=== PATIENT | female | born 1935 | race Caucasian/White ===

== ENCOUNTER 2018-01-26 11:12 | Emergency (ER) | payer MEDICARE, BC ==
--- OUTSIDE RECORDS SUMMARY | 2018-01-26 12:45 | XMS REPORT | Continuity of Care Document ---
:1935 External Reference #:[id number] Author Name Rashawn Burden MD Address [address] [place] [address] Care Team Providers Name Role Phone Jeniffer Fisher M.D. Care Team Information Database Security Administrator Unavailable Maya Fisher M.D. Primary Care Physician Unavailable Payers Type Date Identification Numbers Payment Provider Subscriber Policy Number: [id number] Medicare Stacy Chen PayID: [id number] [address] [place] [address] Policy Number: [id number] [facility] Stacy Chen PayID: [id number] [address] [address] [place] [address] Effective: 2002 Policy Number: [id number] Medicare Stacy Chen Expires: 2017 PayID: [id number] [address] [place] [address] Advance Directives Description No Information Available Problems Date Description Provider Status Onset: 01/23/2018 Other injury of ureter, subsequent Rashawn Burden MD Active encounter Onset: 10/26/2017 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 Onset: 10/26/2017 Injury of ureter without open wound Rashawn Burden MD Active into abdominal cavity Family History Date Family Member(s) Problem(s) Comments Father Bone Cancer Mother Uterine Cancer Social History Type Date Description Comments Sex Unknown Marital Status Occupation Patient is retired Tobacco Use Reviewed: 01/23/18 Patient is a non-smoker Smoking Status Reviewed: 01/23/18 Patient is a non-smoker ETOH Use Occasionally consumes wine 1 a month Allergies, Adverse Reactions, Alerts Date Description Reaction Status Severity Comments 10/26/2017 NKDA Active 01/23/2018 Tape Active rash Medications Medication Date Status Form Strength Qnty SIG Indications Ordering Provider Escitalopram Active Tablets 10mg Unknown Oxalate 000 Metformin HCL Active Tablets 1000mg Unknown 000 Lipitor Active Tablets 40mg 1 by Unknown 000 mouth every night at bedtime Calcium Active Tablets 600-400mg- 1 by Unknown Carbonate-Vitam 000 Unit mouth in D every day Metoprolol Active Tablets ER 50mg Unknown Succinate ER 000 24HR Magnesium Active Capsules 500mg 1 a day Unknown 000 Esomeprazole Active Capsules 40mg Unknown Magnesium [address] Alprazolam Active Tablets 0.25mg Unknown 000 Dispers Myrbetriq Active Tablets ER 25mg 1 by Unknown 000 24HR mouth every day Tylenol Active Capsules 325mg 1 q6 Unknown 000 hours as needed pain Diovan Hx Tablets 80mg 1 by Unknown 000 - mouth every day 018 Metoprolol 0 Hx Tablets 100mg Unknown Tartrate 000 - 018 Macrobid Hx Capsules 100mg 1 by Unknown 000 - mouth twice a 018 day Lasix Hx Tablets 20mg 1 by Unknown 000 - mouth every day 018 Ranitidine HCL Hx Tablets 150mg Unknown 000 - 018 Immunizations Description No Information Available Vital Signs Date Vital Result Comment 01/23/2018 10:36am Height 60 inches 5'0" Weight 145.00 lb Weight 65.772 kg BMI (Body Mass Index) 28.3 kg/m2 BP Systolic 143 mmHg BP Diastolic 77 mmHg Heart Rate 73 /min Results Test Date Facility Test Result H/L Range Note BMP 09/04/2017 Outside Facility BUN - Urea Nitrogen 16 (315)- - Creatinine 1.37 High Calcium 9.3 Potassium 4.2 Procedures Date Code Description Status 09/09/2017 94815 Retrograde,Pyelogram,Urography- Hosp Completed 09/09/2017 72855 Cystourethroscopy, With Biopsy Completed Encounters Type Date Location Provider Dx Diagnosis Office Visit 01/23/2018 [facility]/ A.M.Kannan Hood 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 [id number] - Rashawn Burden,MDC79.11 Secondary malignant neoplasm of bladderComments:We discussed her bladder lesion which was biopsied and was consistent with her underlying gynecologic malignancy. This was on the left half of her trigone. She has no hydronephrosis today. We will repeat her sonogram in 3 months.S37.19xD Other injury of ureter, subsequent encounterNew Xrays:US Retroperitoneal, Limited, Ordered: 01/23/18Comments:We had an extensive discussion today regarding her right ureteral injury. She is currently undergoing chemotherapy for her gynecologic cancer. She anticipates completing this in 3 months. We will readdress a possible reimplantation in 3 months.
--- OUTSIDE RECORDS SUMMARY | 2018-01-26 12:45 | XMS REPORT | Continuity of Care Document ---
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 Primary Care Physician Unavailable Payers Type Date Identification Numbers Payment Provider Subscriber Policy Number: [id number] [place] Stacy Chen PayID: [id number] [address] [place] [address] Policy Number: [id number] [facility] Stacy Chen PayID: [id number] [address] [address] [place] [address] Advance Directives Description No Information Available Problems Description No Information Family History Date Family Member(s) Problem(s) Comments General Cancer, Renal Cell Father Cancer bone Onset: (age 55 Years) Mother Ovarian Cancer Social History Type Date Description Comments Sex Unknown Marital Status Lives With Self Tobacco Use Reviewed: 08/17/17 Never Smoked Cigarettes Smoking Status Reviewed: 08/17/17 Never Smoked Cigarettes ETOH Use Occasionally consumes alcohol Allergies, Adverse Reactions, Alerts Description No Known Drug Allergies Medications Medication Date Status Form Strength Qnty SIG Indications Ordering Provider Vitamin B-6 01/11 Active Tablets 50mg 1 by mouth twice a day LAURA Kenyon Colace 12/18 Active Capsules 100mg 30cap 1 by mouth s twice a day Rick greco MD Miraflow 12/18 Active Solution as needed constipation Rick every 3 days MD fannie Ondansetron HCL 12/15 Active Tablets 8mg 30tab take 1 tab s by mouth Rick every 8 hr. MD fannie as needed for nausea Escitalopram Active Tablets 10mg 1 po qd Unknown Oxalate Metformin HCL Active Tablets 1000mg bid Unknown Lipitor Active Tablets 40mg 1 po qd Unknown Metoprolol Active Tablets 100mg 1 1/2 tab qd Unknown Tartrate Esomeprazole Active Capsules 40mg [address] Grant Active Tablets 25mg 1 daily Unknown ER 24HR Tylenol Active Tablets 325mg 2 every 4 Unknown hours as needed pain Atorvastatin Active Tablets 40mg 1 po qd Unknown Calcium Calcium + D3 Active Tablets 600-800mg 1 po qd -Unit Fish Oil Active Capsules 1000mg 1 po qd Unknown Magnesium Active Tablets 400mg 1 po qd Lovenox 10/03 Hx Solution 40mg/0.4M 1 sq inj. Arelis L every day Rick - post op for MD fannie 10/16 6wks Hydrocodone-Aceta 08/17 Hx Tablets 5-325mg 40tab 1-2 by mouth Kayla minjohnnie s every 4-6 [place], - hours as SCREW MACHINE OPERATOR 09/24 needed pain /2017 after surgery Ibuprofen 08/17 Hx Tablets 600mg 40tab 1 by mouth Kayla s with food Kostas, - every 6 SCREW MACHINE OPERATOR 09/24 hours as needed pain after surgery Nulytely With 08/17 Hx Solution 420gm 4lite use as Kayla Flavor Packs /2017 Rec r directed by Kostas, - your SCREW MACHINE OPERATOR 09/24 physician /2018 Prochlorperazine 08/17 Hx Tablets 10mg 2tabs 1 by mouth Kayla Maleate as needed Kostas, - july repeat 1 SCREW MACHINE OPERATOR 09/24 tab in hours as needed Neomycin Sulfate 08/17 Hx Tablets 500mg 6tabs 2 tabs by Kayla mouth at Kostas, - 1pm, 3pm, SCREW MACHINE OPERATOR 09/24 11pm prior to surgery Metronidazole 08/17 Hx Tablets 500mg 6tabs 2 tabs by Kayla mouth at Kostas, - 1pm, 3pm and SCREW MACHINE OPERATOR 09/24 11pm before surgery Nexium 00/00 Hx Capsules 20mg qd Unknown /0000 DR - 09/24 Diovan 00/00 Hx Tablets 80mg qd Unknown /0000 - 10/16 Ox 00/ Hx Tablets 25mg 1 po qd Unknown /0000 - 09/24 Vitamin D3 Super 00/ Hx Capsules 2000Unit qd Unknown Strength /0000 - 09/24 Metoprolol / Hx Tablets 100mg 1 1/2 tab qd Unknown Tartrate /0000 - 09/24 Adult Aspirin Ec 00 Hx Tablets 81mg qd Unknown Low Strength /0000 DR - 09/24 Calcium 00/ Hx Tablets 600-400mg 1 po qd Unknown Carbonate-Vitamin /0000 -Unit D3 - 11/22 Multivitamin 00/00 Hx Tablets qd Unknown Women /0000 - 09/24 Myrbetriq 00/ Hx Tablets 25mg 1 po qd Unknown /0000 ER 24HR - 09/24 Metoprolol Hx Tablets 50mg 1 daily in Unknown Succinate ER /0000 ER 24HR am - 11/22 Magnesium 00/ Hx Tablets 400mg 1 by mouth Unknown /0000 daily - 10/16 Macrobid Hx Capsules 100mg 1 by mouth Unknown /0000 twice a day - for 10 days 10/06 Lasix 00/ Hx Tablets 20mg 1 by mouth Unknown /0000 every day - 10/16 Alprazolam Hx Tablets 0.25mg one by mouth Unknown /0000 at bedtime - and one 10/16 daily needed sleep/anxiet y Ranitidine HCL / Hx Capsules 150mg one my mouth Unknown /0000 twice a day, - prn 10/16 Lasix 00 Hx Tablets 20mg 1 by mouth Unknown /0000 every day - 11/22 Eliquis 00/ Hx Tablets 5mg 1 by mouth Unknown /0000 twice a day - 10/16 Diovan 00/ Hx Tablets 80mg 1 daily Unknown /0000 - 11/22 Immunizations Description No Information Available Vital Signs Date Vital Result Comment 01/11/2018 10:47am BP Systolic 145 mmHg BP Diastolic 72 mmHg Heart Rate 60 /min Respiratory Rate 16 /min Height 59.5 inches 4'11.50" Weight 148.00 lb BSA (Body Surface Area) 1.63 m2 BMI (Body Mass Index) 29.4 kg/m2 Height in cm's 151.1 cm Weight 67.133 kg 12/21/2017 2:18pm BP Systolic 136 mmHg BP Diastolic 69 mmHg Heart Rate 60 /min Body Temperature 97.4 F Height 59.5 inches 4'11.50" O2 % BldC Oximetry 96 % Height in cm's 151.1 cm 12/14/2017 3:47pm BP Systolic 134 mmHg BP Diastolic 69 mmHg Heart Rate 69 /min Respiratory Rate 16 /min Height 59.5 inches 4'11.50" Weight 142.00 lb BSA (Body Surface Area) 1.60 m2 BMI (Body Mass Index) 28.2 kg/m2 Height in cm's 151.1 cm Weight 64.411 kg 11/23/2017 10:12am BP Systolic 154 mmHg BP Diastolic 62 mmHg Heart Rate 68 /min Respiratory Rate 16 /min Height 59.5 inches 4'11.50" Weight 140.00 lb BSA (Body Surface Area) 1.59 m2 BMI (Body Mass Index) 27.8 kg/m2 Height in cm's 151.1 cm Weight 63.504 kg 10/17/2017 9:53am BP Systolic 126 mmHg BP Diastolic 74 mmHg Heart Rate 102 /min Respiratory Rate 16 /min Height 59.5 inches 4'11.50" Weight 131.00 lb BSA (Body Surface Area) 1.55 m2 BMI (Body Mass Index) 26.0 kg/m2 Height in cm's 151.1 cm Weight 59.422 kg 10/03/2017 2:07pm BP Systolic 120 mmHg BP Diastolic 70 mmHg Heart Rate 52 /min Respiratory Rate 16 /min Height 59.5 inches 4'11.50" Height in cm's 151.1 cm 08/17/2017 9:55am BP Systolic 140 mmHg BP Diastolic 67 mmHg Heart Rate 72 /min Respiratory Rate 16 /min Height 59.5 inches 4'11.50" Weight 149.00 lb BSA (Body Surface Area) 1.64 m2 BMI (Body Mass Index) 29.6 kg/m2 Height in cm's 151.1 cm Weight 67.586 kg Results Test Date Facility Test Result H/L Range Note CBC W/Auto 01/10/2018 [facility] Hemoglobin Blood <pending> Differential Hematocrit <pending> MCV (Corpuscular Volume) <pending> MCH (Corpuscular Hemoglobin) <pending> MCHC (Corpuscular Hemog Conc) <pending> RDW <pending> Platelet Count Blood Auto CNT <pending> MPV <pending> Neutrophils <pending> Fluid Bands <pending> Fluid Lymphocytes <pending> Monocytes <pending> Fluid Body Eosinophils <pending> Basophils % <pending> Absolute Basophils <pending> Absolute Eosinophils <pending> Absolute Lymphocytes <pending> Absolute Monocytes <pending> Absolute Neutrophils Auto CNT <pending> Comprehensive Metabolic 01/10/2018 [facility] Albumin <pending> Alt <pending> Calcium <pending> Carbon Dioxide <pending> Chloride <pending> Creatinine <pending> Alkaline Phosphatase <pending> Potassium <pending> Protein Total <pending> Sodium <pending> Ast <pending> BUN <pending> Laboratory test 12/04/2017 [facility] BUN - Urea Nitrogen <pending> finding Creatinine Serum Mass/Vol <pending> [facility] See Comment: 1 PDF [id number] SEE IMAGE Laboratory test finding 08/17/2017 [facility] Pathology Report See Comment: 2 PDF [id number] SEE IMAGE 1 . 01 Material submitted: . CERVICAL BIOPSY . 01 Clinician provided ICD-10: R19.09 N95.0 . 01 Diagnosis: POORLY DIFFERENTIATED ADENOCARCINOMA, SEROUS TYPE, CERVICAL BIOPSY. [facility]/08/22/2017 . 01 Electronically signed: . Junaid Alejandro MD, Pathologist . 01 Gross description: . Specimen received in formalin and labeled with the patient's name consists of slightly less than 0.25 cc of lobo to farah wispy and rubbery tissue fragments. Submitted in toto. (1 block) MARGRET / . Pathologist provided ICD-10: C53.9 . 01 CPT . 470742 2 . 01 Material submitted: . ENDOMETRIAL BIOPSY . 01 Clinician provided ICD-10: R19.09 N95.0 . 01 Diagnosis: ENDOMETRIAL ADENOCARCINOMA, FIGO GRADE 3, SEROUS TYPE. [facility]/08/22/2017 . 01 Electronically signed: . Junaid Alejandro MD, Pathologist . 01 Gross description: . Specimen received in formalin and labeled with the patient's name consists of 0.25 cc of clot and blood tinged mucinous material with scant wispy tissue fragments. Submitted in toto. (1 block) MARGRET SALEEM . Pathologist provided ICD-10: C54.1 . 01 CPT . 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 Z01.818 Encounter for other preprocedural examination Z79.899 Other rn long term care (current) drug therapy Z51.11 Encounter for antineoplastic chemotherapy Office Visit 12/14/2017 3:45p [facility] Jen[facility] Li C54.1 Malignant leon ROY MD neoplasm of endometrium 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 E11.9 Type 2 diabetes mellitus without complications I10 Essential (primary) hypertension Office Visit 11/23/2017 9:45a [facility] C54.1 Malignant leon ROY MD neoplasm of endometrium 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 Office Visit 08/17/2017 [facility] Jeniffer Li R19.09 Other 10:00a Of leon ROY MD intra-abdominal and pelvic swelling, mass and lump N95.0 Postmenopausal bleeding E11.9 Type 2 diabetes mellitus without complications I10 Essential (primary) hypertension Plan of Treatment Future Appointment(s):02/01/2018 10:45 am - Chemo, Patients at [facility], pc104/03/2017 10:45 am - Kayla Kenyon, SCREW MACHINE OPERATOR at [facility], [id number] - Kayla Kenyon, NPC54.1 Malignant neoplasm of endometriumNew Orders: Cranial Prosthesis, Ordered: 01/11/18Comments:She seems to be tolerating chemo well so far. She is aware to call us with any issues she is unable to manage. We will proceed with her next cycle of chemotherapy. Orders written. Continue to monitor labs closely.C79.82 Secondary malignant neoplasm of genital ijekuwS38.8 Secondary and unspecified malignant neoplasm of lymph nalxnV01.818 Encounter for other preprocedural xfatbjjcvxqW83.899 Other prison (current) drug xhiviklX15.11 Encounter for antineoplastic chemotherapy
[2018-01-26 12:54] VITALS: BP 141/71
--- NOTE | 2018-01-26 13:14 | ED ---
HPI Febrile Illness - HPI Summary HPI Summary: 82 yo WF h/o [place] ca s/p cycles of chemo and right nephrostomy tube p/w fever 100.6 per physical therapist who alerted the pt and sales assistant institutional sales to come to . Denies URI sx, cough, or sx - History of Current Complaint Chief Complaint: UCGeneralIllness Time Seen by Provider: 01/26/18 12:45 Onset/Duration: Started Days Ago Timing: Intermittent Initial Severity: Moderate Current Severity: Moderate Pain Intensity: 0 Aggravating Factors: Unknown Associated Signs and Symptoms: Negative - Allergy/Home Medications Allergies/Adverse Reactions: Allergies Allergy/AdvReac Type Severity Reaction Status Date / Time No Known Allergies Allergy Verified 01/26/18 12:46 Home Medications: Home Medications Atorvastatin* [Lipitor 40 MG*] 40 mg PO DAILY 01/26/18 [History Confirmed ] Calcium Carbonate/Vitamin D3 [Calcium 1,000 + D3 Caplet] 1 tab PO 01/26/18 [ History] Escitalopram Oxalate [Lexapro 10 mg] 10 mg PO DAILY 01/26/18 [History Confirmed 01/26/18] Esomeprazole Magnesium [Nexium] 40 mg PO DAILY 01/26/18 [History Confirmed 01/26] Magnesium Oxide [Magnesium] 400 mg PO DAILY 01/26/18 [History Confirmed 01/26/18 ] Metoprolol Tartrate TAB* [Lopressor TAB*] 150 mg PO DAILY 01/26/18 [History Confirmed 01/26/18] Mirabegron (NF) [Myrbetriq (NF)] 25 mg PO DAILY 01/26/18 [History Confirmed 05/14] [place]-3 Fatty Acids/Fish Oil [Fish Oil 1,000 mg Capsule] 1 each PO DAILY [History Confirmed 01/26/18] metFORMIN* [Glucophage 1000 MG TAB *] 1,000 mg PO BID 01/26/18 [History Confirmed 01/26/18] PMH/Surg Hx/FS Hx/Imm Hx Previously Healthy: Yes Endocrine/Hematology History: Reports: Hx Diabetes Cardiovascular History: Reports: Hx Hypertension - Cancer History Cancer Type, Location and Year: uterine - Surgical History Surgery Procedure, Year, and Place: Appendectomy. Right Hip Arthroplasty. Left Knee Arthroplasty. R Knee. L Hip Infectious Disease History: No Infectious Disease History: Denies: Traveled Outside the [place] in Last 30 Days - Social History Alcohol Use: None Substance Use Type: Reports: None Smoking Status (MU): Never Smoked Tobacco Review of Systems Positive: Fever, Chills, Fatigue Eyes: Negative ENT: Negative Cardiovascular: Negative Respiratory: Negative Gastrointestinal: Negative Musculoskeletal: Negative Skin: Negative Neurological: Negative All Other Systems Reviewed And Are Negative: Yes Physical Exam - Summary Physical Exam Summary: Vital Signs Reviewed: Yes Appearance: Positive: frail Skin: Positive: Warm Head/Face: Positive: Normal Head/Face Inspection Eyes: Positive: Normal, EOMI, HAILE ENT: Positive: Normal ENT inspection Neck: Positive: Supple Respiratory/Lung Sounds: Positive: Clear to Auscultation Cardiovascular: Positive: Normal, RRR, S1, S2 Abdomen Description: Positive: LEft CVA tenderness over nephrostomy tube site Musculoskeletal: Positive: Normal Neurological: Positive: CN Intact II-XII, on walker Psychiatric: Positive: Normal Vital Signs On Initial Exam: Initial Vitals Temp Pulse Resp BP Pulse Ox 38.4 C 72 18 141/71 97 01/26/18 12:48 01/26/18 12:48 01/26/18 12:48 01/26/18 12:48 01/26/18 12:48 Diagnostics - Vital Signs Vital Signs Temp Pulse Resp BP Pulse Ox 01/26/18 12:48 38.4 C 72 18 141/71 97 - Laboratory Lab Statement: Any lab studies that have been ordered have been reviewed, and results considered in the medical decision making process. Course/Dx - Course Assessment/Plan: POsitive UA for nitrite with turbid urine from nephrostomy tube - await Ucx. Will tx with cipro 500 BID x 10days with urology f/u. elevated BP due to acute illness - Diagnoses Provider Diagnoses: Fever, UTI (urinary tract infection) Discharge - Sign-Out/Discharge Documenting (check all that apply): Patient Departure All imaging exams completed and their final reports reviewed: Yes - Discharge Plan Condition: Stable Disposition: HOME Prescriptions: Ciprofloxacin TAB* [Cipro 500 MG TAB*] 500 mg PO BID 10 Days #20 tab Patient Education Materials: Catheter-associated Urinary Tract Infection (ED) Referrals: Teresa Crisostomo MD [Primary Care Provider] - Additional Instructions: PLEASE FOLLOW UP WITH UROLOGY PETER AND GO TO ER IF FEVERS PERSIST BEYOND 48HRS - Billing Disposition and Condition Condition: STABLE Disposition: Home
[2018-01-26 18:52] LABS: ABS Basophils 0 10^3/ul (0-0.2); ABS Eosinophils 0 10^3/ul (0-0.6); ABS Monocytes 0.7 10^3/ul (0-0.8); ABS Neutrophils 3.4 10^3/ul (1.5-7.7); ABS Nucleated RBC 0 10^3/ul; Eosinophil % 0.3 % (0-6); Hematocrit 34 % (35-47); Hemoglobin 10.8 g/dl (12.0-16.0); Lymphocyte % 19.1 % (25-47); Mean Corpuscular HGB Conc 32 g/dl (31-36); Mean Corpuscular Hemoglobin 26 pg (27-31); Mean Corpuscular Volume 82 fL (80-97); Mean Platelet Volume 7.6 fL (7.4-10.4); Nucleated Red Blood Cells % 0.1; Platelet Count 230 10^3/ul (150-450); Red Cell Distribution Width 21 % (10.5-15); White Blood Count 5.1 10^3/ul (3.5-10.8)
[2018-01-26 18:58] LABS: EGFR Non-African American 89.3 (>60)
--- NOTE | 2018-01-27 08:08 | UC ---
- Progress Note Progress Note: 1. mild anemia -- recheck PCP 2. glucose 155 -- recheck PCP for diabetes 3. Liver enzymes elevated -- monitor recheck PCP 4. dehydration present increase water intake 5. Go to ED if Sx worsened since visit Course/Dx - Diagnoses Provider Diagnoses: Fever, UTI (urinary tract infection) Discharge - Sign-Out/Discharge Documenting (check all that apply): Patient Departure All imaging exams completed and their final reports reviewed: Yes - Discharge Plan Condition: Stable Disposition: HOME Prescriptions: Ciprofloxacin TAB* [Cipro 500 MG TAB*] 500 mg PO BID 10 Days #20 tab Patient Education Materials: Catheter-associated Urinary Tract Infection (ED) Referrals: Teresa Crisostomo MD [Primary Care Provider] - Additional Instructions: PLEASE FOLLOW UP WITH UROLOGY PETER AND GO TO ER IF FEVERS PERSIST BEYOND 48HRS - Billing Disposition and Condition Condition: STABLE Disposition: Home
== END 2018-01-26 14:37 | disposition home or self-care (01) ==
LOC: UCCORT 11:12
DX: R50.9 Fever, unspecified (principal); N39.0 Urinary tract infection, site not specified; C55 Malignant neoplasm of uterus, part unspecified; E11.9 Type 2 diabetes mellitus without complications; I10 Essential (primary) hypertension
CPT/HCPCS: 36415; 80053; 81003; 85025; 87086; 87651; 99202; G0463